=== PATIENT | male | born 1955 | race Caucasian/White ===

== ENCOUNTER → 2017-11-02 | Outpatient (CLI) | payer OTHER, MEDICAID ==
[~2017-11-02] MED LIST: ANTI14DR4 EACH EAR; BACL-19 PO; BUDE10.2 INH; CARV3.122 PO; DESO15CR21 TP; ESOM40CA PO; ESZO3TAB28 PO; FLUT16SP NAS; GLIP10TA13 PO; HYDR-3307 PO; IPRA0.2S35 NAS; KETO15CR2 TP; METF500T4 PO; MOME17SP NAS; MONT10TA6 PO; OXYC-307 PO; POTA20PA PO; PREG100C PO; SILO8CAP PO; TEMA30CA6 PO; TIZA2CAP2 PO; TRAM50TA2 PO; VALS1TAB24 PO; VALS1TAB3 PO; ZOLM5TAB10 PO
== END | disposition home or self-care (01) ==
LOC: RAD 12:37
PROVIDERS: ATTEND Internal Medicine Cardiovascular Disease
DX: M48.07 Spinal stenosis, lumbosacral region (principal); M47.897 Other spondylosis, lumbosacral region; M48.54XD Collapsed vertebra, not elsewhere classified, thoracic region, subsequent encounter for fracture with routine healing; M51.24 Other intervertebral disc displacement, thoracic region; M47.892 Other spondylosis, cervical region; M48.02 Spinal stenosis, cervical region; G89.29 Other chronic pain
CPT/HCPCS: 72141; 72146; 72148